=== PATIENT | male | born 1985 | race Caucasian/White ===

== ENCOUNTER 2020-12-02 12:54 | Emergency (ER) | payer BC ==
[~2020-12-02] VITALS: Ht 188 cm; Wt 97.5 kg
[2020-12-02] MEDS ORDERED: BACTRIM DS TAB1 EAC1 PO (13:03)
[2020-12-02 14:02] VITALS: BP 120/68
== END 2020-12-02 14:02 | disposition home or self-care (01) ==
LOC: ER 12:54
DX: M20.012 Mallet finger of left finger(s) (principal); F12.90 Cannabis use, unspecified, uncomplicated; Z79.899 Other long term (current) drug therapy; Z88.8 Allergy status to other drugs, medicaments and biological substances